=== PATIENT | female | born 1940 | race Caucasian/White ===

== ENCOUNTER 2023-02-20 11:22 | Outpatient (AMB) | payer MEDICARE, SELFPAY ==
--- NOTE | 2023-02-20 11:25 | AM.OFFWIN_ITS ---
Intake Vital Signs 02/20/23 11:28 Height 5 ft 4.5 in Weight 79.379 kg BMI 29.6 BP 110/72 Blood Pressure Location Rt brachial Position Sitting Pulse 76 Pulse Source Pulse Oximeter Temp 97.8 F Temp Source Temporal Artery Scan Pulse Oximetry (%) 94 Oxygen Delivery Method Room Air Intake Visit Reasons: [employer] Congestion, mucus (Masked) Intake Note: pt is here for c/o congestion with mucus Patient Tobacco Use Status: Never used Tobacco Allergies penicillamine Allergy (Mild, Verified 02/20/23 11:31) Rash Do you need a note to return to daycare/school/sports/work: Yes HPI HPI Comments History of Present Illness Details 1142 82-year-old female presents with complaints of cough productive of the white/ yellow sputum, fatigue, malaise, myalgias for the past 3 weeks worsening. patient tells me that her symptoms have just not been improving. Reports neighbors are sick with similar symptoms. Denies chest pain, shortness of breath, nausea vomiting, abdominal pain, headache, vision changes, dizziness and weakness. Physical examination benign. Patient well-appearing 94% after ambulation. History and physical exam concerning for bacterial bronchitis versus pneumonia versus viral illness. Unlikely pulmonary embolism, ACS, dissection , pneumothorax plan will discharge on antibiotics, steroids and inhaler. Educated patient on diagnosis and treatment plan, answered all question, patient verbalizes understanding. At this time patient will be discharged home, advised to return with new or worsening symptoms. Educated on worrisome signs and symptoms and when to return. At this time I feel comfortable discharge home. [facility] Social History Patient Tobacco Use Status: Never used Tobacco Review of Systems Const Details: Constitutional : No Weight loss, No Fever, No Chills, + Fatigue, + Malaise ENT/Mouth : No sore throat, No Rhinorrhea Eyes: No Eye Pain, No Swelling, No Redness Cardiovascular : No Chest Pain, No SOB, No Dyspnea on Exertion, No Orthopnea, No Edema, No Palpitations Respiratory : + Cough, + Sputum, No Wheezing Gastrointestinal : No Nausea, No Vomiting, No Diarrhea, No Constipation, No abdominal Pain, No Hematochezia, No Melena Genitourinary : No Dysuria, No Urinary Frequency, No Hematuria, Musculoskeletal : No joint pain, No Myalgias, No Joint Swelling Skin : No Skin Lesions, No rash Neuro : No Weakness, No Numbness, No Dizziness, No Headache Psych : No Anxiety/Panic, No Depression All other systems reviewed and are negative All systems reviewed & are unremarkable except as noted in HPI and below Physical Exam Vital Signs: Last Vital Signs Temp 97.8 F 02/20/23 11:28 Pulse 76 02/20/23 11:28 BP 110/72 02/20/23 11:28 Pulse Ox 94 02/20/23 11:28 Oxygen Delivery Method Room Air 02/20/23 11:28 BMI result Body Mass Index 29.6 vss Appearance: Alert.? Oriented X3.? No acute distress.? not using intercostal muscles for breathing, patient comfortable appearing. Speaking in full sentences. Head: Normocephalic, atraumatic, no step-offs or deformities Eyes: Pupils equal, round and reactive to light.? Neck: Normal inspection.? Neck supple.? CVS: Normal heart rate and rhythm.? Pulses normal.? Respiratory: No respiratory distress.? Breath sounds normal.? Abdomen: Soft and nontender.? Skin: Skin warm and dry.? Normal skin color.? Normal skin turgor.? Extremities: No lower extremity edema.? No calf ttp. Global weakness Neuro: Oriented X 3.? No motor deficit.? No sensory deficit. CN 2-12 intact Assessment & Plan Assessment & Plan (1) Bronchitis: Code(s): J40 - Bronchitis, not specified as acute or chronic Plan Take your medications as prescribed. If you were prescribed antibiotics today, it is important that you take your medication to their entirety, do not skip any doses, do not finish them early. Follow-up with your primary care provider this week. Return to the emergency department with new or worsening symptoms. Such as fevers, chills, chest pain, shortness of breath, nausea, vomiting, dizziness, headache, vision changes, lethargy In case of emergency call 911 Medications: New prednisone 20 mg PO DAILY 5 tabs 0RF 5 days albuterol sulfate 90 mcg/actuation 2 puffs inhalation Q6H PRN 6.7 grams 0RF shortness of breath or wheezing doxycycline hyclate 100 mg PO BID 14 caps 0RF 7 days Coding Level of Care Code Est Pt Level 3 (85033) Diagnoses Bronchitis J40
[2023-02-20 11:28] VITALS: BP 110/72; PULSE 76; TEMP 36.6; O2SAT 94; BMI 29.6
== END 2023-02-20 11:40 | disposition home or self-care (01) ==
PROVIDERS: PCP Registered Nurse; Visit Provider Physician Assistant
DX: J40 Bronchitis, not specified as acute or chronic (principal)
CPT/HCPCS: 99213